=== PATIENT | male | born 1945 | race Caucasian/White ===

== ENCOUNTER → 2017-05-17 | Outpatient (CLI) | payer BC ==
[~2017-05-17] MED LIST: AMIT50TA PO; AREDS EYE VITAMIN; ASCO10002 PO; ASPI-482 PO; DILT180C64 PO; GLUC1TAB71 PO; IOHEXOL 180 MG/ML 10 ML VIAL. ONE; LISI40TA PO; LOVA40TA2 PO; MV-M1TAB34 PO; OMEG1CAP43 PO; OMEP40CA5 PO; TIZA4TAB PO; VITA1CAP PO; VITA400T6 PO; methylPREDNISolone ACETATE 40 MG/ML VIAL. ONE; methylPREDNISolone ACETATE 80 MG/ML VIAL. ONE
--- NOTE | 2017-05-18 01:18 | PAIN ---
DATE OF SERVICE: 05/17/2017 INITIAL CONSULTATION FOR PAIN CLINIC CHIEF COMPLAINT: Low back and left lower extremity pain. HISTORY OF PRESENT ILLNESS: This is a 72-year-old male who presents with history of pain in low back and left lower extremity about 7 years, worse over the past year or so, increasing with activity, worse with time as well. The patient reports no specific injury or action he is aware of that would cause the pain, but the pain is becoming worse with daily activities, especially standing, walking, and changing positions. The patient reports it is constant, sharp, radiating into the left posterior gluteus, posterior lateral thigh, intermittent in intensity, but always present, also some radiation into the left lateral and anterior thigh, which is deep and burning. The patient reports it does not awaken him from sleep at night; however, feels much better lying down or sitting. The patient reports he is able to walk for about 100 yards or so, then he has to stop because the pain is becoming worse into the left leg, stops and rests for about minutes and the pain resolves when he is sitting, gets up in the posture starts again. The patient reports no bowel or bladder incontinence. It does affect his ability to walk fairly significantly. He is not using any assistive devices; however, the patient has done some physical therapy in the past as well as chiropractic treatment and exercise within the last few months, which all helped to some extent. He has had no other treatments, but still only helping by about 20-30%. The patient reports disability rate from 0-10, 10 being the worst, is a 9 with family and home responsibilities, 4 with recreation and self-care, 0 with social activity and life support activities. The patient reports again no loss of motor function with significant fatigability in the left lower extremity with ambulation compared to the right. PAST MEDICAL HISTORY: Significant for hearing loss; cataracts; hypertension; cigarette smoking, quit in 1978; history of arthritis; and tachycardia. PREVIOUS SURGERY: Includes tonsillectomy in 1949, sinus polyps exercised in the past, and right rotator cuff repair in the past. CURRENT MEDICATIONS: Include tizanidine, amitriptyline, fish oil, vitamin D, multivitamins, vitamin E, ascorbic acid, baby aspirin, Osteo Bi-Flex, omeprazole, lisinopril, lovastatin, and diltiazem. ALLERGIES: The patient has no known drug allergies. FAMILY HISTORY: Significant for cancer and heart disease. SOCIAL HISTORY: The patient does not drink alcohol; does not smoke, quit many years ago. He is single, lives on his own and lives locally in [place], [place], currently retired. REVIEW OF SYSTEMS: The patient's review of systems is positive for those items mentioned in history of present illness. It is full, complete. All systems reviewed and otherwise negative and is on the patient's chart. PHYSICAL EXAMINATION: VITAL SIGNS: The patient's blood pressure is 158/94, pulse is 107, respirations 18, temperature 98.1 degrees Fahrenheit, height is 5 feet 9 inches, weight is 201 pounds. GENERAL: The patient is awake, alert, oriented, appropriate, very pleasant demeanor. HEENT: Head shows normocephalic, atraumatic. Extraocular movements are intact and symmetrical. Oral cavity shows mucous membranes moist and pink. Dentition is intact. NECK: Shows anterior throat supple without palpable lymphadenopathy noted. Swallow reflex is symmetrical. Neck shows full rotational motion of cervical spine including extension and flexion. Right and left lateral rotation without difficulty or pain reported. CHEST: Shows normal on inspection. Breath sounds are clear to auscultation bilaterally. HEART: Shows S1 and S2 clear. No murmurs auscultated. ABDOMEN: Obese and soft, nontender, nondistended. No palpable organomegaly. There is no rebound or guarding demonstrated. BACK: The patient's back shows spine grossly in the midline. Normal appearing thoracic kyphosis and lumbar lordotic curvature. No previous bruises, lesions, rashes, or scars are noted. Inspection of paraspinous musculature is symmetrical throughout the thoracic and lumbar distribution. With palpation shows some mild tenderness in the mid thoracic distribution and in the rhomboid musculature as well between the shoulder blades, but only diffusely, no specific trigger points, atrophy or hypertrophy is noted. Lumbar paraspinous musculature is diffusely tender as well, mostly in the low lumbar distribution without specific trigger points or radiation. No asymmetry. No tenderness over the spinous processes, sacrum or sacroiliac regions. The patient shows good rotation and motion of lumbar spine, both laterally greater than 10 degrees right and left as well as extension greater than 10 degrees, forward flexion 45 degrees without difficulty or pain reported. LOWER EXTREMITIES: Show deep tendon reflexes at 2+ in the patellar, 1+ tendo calcaneus tendons are equal. Motor exam is strong with 5/5 dorsiflexion, extension, quadriceps and hamstring flexion and are symmetrical. Peripheral pulses are 1+ posterior tibial and dorsalis pedis pulses. No peripheral edema is noted. No clubbing, no cyanosis. Lower extremities are warm and dry to touch, equal in color and appearance. Straight leg raise noted to be positive on the left at about 45 degrees, which is decreased, but not completely relieved with knee flexion, right side is negative. Gaenslen's and Armaan's maneuvers are negative bilaterally as well. The patient is able to stand, stand on his toes without difficulty or loss of balance, able to heel toe walk for several steps without difficulty, ambulates with normal appearing gait, does not appear to favoring the right or left lower extremity, not using any assistive devices to ambulate. IMPRESSION: 1. This is a 72-year-old male with long history of low back and left lower extremity pain in a radicular fashion. 2. MRI scan of lumbar spine on 02/10/2017, showing moderately severe central spinal stenosis with severe central and bilateral foraminal stenosis at L4-L5 secondary diffuse disk protrusion, probably a broad-based disk herniation. Also with some severe central stenosis at L2-L3 and L3-L4. 3. Hypertension. PLAN: Options were discussed with the patient including conservative medical management, physical therapy, interventional techniques and he would like to pursue interventional techniques. We discussed a lumbar epidural steroid injection using description as well as anatomical models to describe the procedure. Risks were then discussed including, but not limited to bleeding, infection, possibility of epidural hematoma and subsequent neurologic compromise, dural puncture, headaches, spinal cord and/or nerve damage, side effects of steroid medication and poor results regarding pain control. The patient understands and wishes to proceed. The patient will return to clinic in approximately 2 weeks for followup. He was counseled as to return appointment, activity level and side effects to be aware of. DIAGNOSES: Lumbar radiculopathy with lumbar spinal stenosis and lumbar degenerative disease. PROCEDURE: Lumbar epidural steroid injection in translaminar approach at the L4-L5 level using C-arm fluoroscopic guidance under sterile prep and drape using local anesthetic. Medication injected a total of 120 mg Depo-Medrol plus 10 mL of preservative-free normal saline and 2 mL of Isovue contrast. CONDITION AT DISCHARGE: Stable. The patient tolerated procedure well and had no complications. AIMEE MORALES MD DR: JANETT/jose JOB#: [id number] / [id number] RUDI Bales MD
== END | disposition home or self-care (01) ==
LOC: PNCL 12:54
PROVIDERS: ATTEND Anesthesiology
DX: M51.16 Intervertebral disc disorders with radiculopathy, lumbar region (principal); M48.06 Spinal stenosis, lumbar region; H91.90 Unspecified hearing loss, unspecified ear; I10 Essential (primary) hypertension; Z87.891 Personal history of nicotine dependence
CPT/HCPCS: 62323; J1030; J1040

== ENCOUNTER → 2017-06-08 | Outpatient (CLI) | payer BC ==
[~2017-06-08] MED LIST changes: -IOHEXOL 180 MG/ML 10 ML VIAL. ONE; -methylPREDNISolone ACETATE 40 MG/ML VIAL. ONE; -methylPREDNISolone ACETATE 80 MG/ML VIAL. ONE
--- NOTE | 2017-06-08 12:36 | KCIC ---
MRI Cervical Spine Without Contrast History: Right cervical radiculopathy, symptoms started about 3.5 weeks ago Technique: Multiplanar, multi sequential noncontrast MR imaging was performed of the cervical spine. Comparison: February 29, 2016 Findings: There is mild motion artifact. Cervical cord caliber is within normal limits, some questionable subtle increased T2 signal of the cord at C5-C6 at which there is spinal stenosis. There is multilevel abnormal alignment, grade 1 anterior spondylolisthesis at C3-4, C4-5, C7-T1, T1-T2, T2-3. There is moderate to severe degenerative disc disease C5-C6, C6-7, T2-3, and to lesser degree at C7-T1 as seen previously, minimally at C3-4. There is no new abnormality of the cervical medullary junction. There is no significant marrow edema. Cervical vertebral body stature is adequate. There is a small focus of nonspecific fluid signal intensity more centrally just inferior to the posterior central arch of C1 up to 0.6 cm greatest dimension. C2-C3: Spinal canal and neural foramina are adequate. There is a very shallow posterior central protrusion. C3-C4: There is again severe left facet degenerative change. Spinal canal is adequate. There is right uncovertebral degenerative change. There is again focus of decreased signal on all sequences of the right superior C3 vertebral body, no new marrow edema and probably component of Schmorl's node. There is moderate to severe neural foramina compromise bilaterally. C4-C5: There is severe left and [id number] right facet degenerative change. Spinal canal is adequate. There is fairly severe left and moderate to severe right neural foramina compromise. C5-C6: There is again disc osteophyte complex with superimposed broad protrusion/mostly contained extrusion which measures up to approximately 4 mm AP by 8 mm CC by 9 mm transverse. There is indentation upon the ventral thecal sac, somewhat greater in the far lateral recess. Central canal is narrowed to approximately 8 mm, left greater than right lateral recess stenosis. There is uncovertebral degenerative change bilaterally. There is severe neural foramina compromise bilaterally. C6-C7: There is disc osteophyte complex and superimposed protrusion more eccentric to the far lateral recess as seen previously. Central canal is adequate 11 mm, [id number] narrowing of the far left lateral recess, and focal effacement of ventral subarachnoid space in the far left lateral recess. There is uncovertebral degenerative change greater on the left. There is severe left and moderate to severe right neural foramina compromise. C7-T1: There is bilateral facet hypertrophic change. There is partial uncovering of the posterior aspect of the disc due to spondylolisthesis with minimal superimposed bulge. There is mild buckling of the ligamentum flavum. Central canal is minimally narrowed to approximately 9 mm. There is right uncovertebral degenerative change. There is likely moderate to severe neural foramina compromise bilaterally. T1-2: This level was not included on the axial images. There is protrusion eccentric to the left lateral recess. There is buckling of the ligamentum flavum. Central canal is narrowed to 8 to 9 mm, greater degree of left lateral recess stenosis. There is bilateral facet degenerative change. There is fairly severe neural foramina compromise bilaterally. T2-3: This level was not included on the axial images. There is protrusion/extrusion extending above the intervertebral disc space more eccentric to the right lateral recess. Central canal is likely narrowed to approximately 9 mm with a greater degree of right lateral recess stenosis. There is uncovertebral degenerative change on the right. There is likely ilmb-fn-[id number] narrowing of the right neural foramen. Impression: 1. There is mild spinal stenosis C5-C6, C7-T1, T1-T2, and T2-3 with variable greater degree of lateral recess stenosis as described. 2. As seen previously, there is multilevel abnormal alignment, multilevel facet degenerative change. 3. There is multilevel significant neural foramina compromise bilaterally C3-4 through T1-T2. Facet and uncovertebral degenerative change contributes to neural foramina compromise. 4. There is multilevel moderate to severe degenerative disc disease greatest C5-C6, C6-7, and T2-3 and to lesser degree at C7-T1. Electronically signed by: Arias Quiros MD (06/08/2017 12:32 PM) [facility]
== END | disposition home or self-care (01) ==
LOC: KCIC MRI 10:31
PROVIDERS: ATTEND Physical Medicine & Rehabilitation
DX: M48.02 Spinal stenosis, cervical region (principal); M50.122 Cervical disc disorder at C5-C6 level with radiculopathy; M50.123 Cervical disc disorder at C6-C7 level with radiculopathy; M47.22 Other spondylosis with radiculopathy, cervical region; M43.12 Spondylolisthesis, cervical region
CPT/HCPCS: 72141

== ENCOUNTER → 2017-06-09 | Outpatient (CLI) | payer BC ==
--- NOTE | 2017-06-09 23:05 | PAIN ---
DATE OF SERVICE: 06/09/2017 DIAGNOSES: 1. Lumbar radiculopathy with lumbar degenerative disk disease, lumbar spinal stenosis. 2. Thoracic degenerative disk disease. HISTORY OF PRESENT ILLNESS: The patient is a 72-year-old male who returns for followup status post lumbar epidural steroid injection x 1. The patient reports about 95% improvement in his low back and left lower extremity pain is almost completely gone. The patient has increased his activity with greater ease and comfort, very pleased with his progress, reports his pain is only a 1-2 on a scale of 10. His chief complaint today, however, is pain in the mid upper back, more on the right side and it is like a knife pain that is causing some tingling in the right arm as well. The patient reports that it could be as high as a 9 on a scale of 10 and is currently a 6 on a scale of 10. It is tingling, sharp, severe and becoming more constant pain. The patient did have an MRI scan yesterday of the cervical and upper thoracic spine showing some significant stenosis at C5-C6, C6-T1, T1-T2 and T2-T3 with lateral recess stenosis at T2-T3 with a protrusion/extrusion on the right extending above the ____ space in the right lateral recess. The patient reports this is his chief complaint. He has had this on and off for years, but it is becoming more and more noticeable now that his back is feeling better. He is noticing it much more severe in the right side of the upper back. The patient reports no new motor or sensory deficits. No new bowel or bladder incontinence or other complaints. PHYSICAL EXAMINATION: VITAL SIGNS: Today, blood pressure is 151/95, pulse 99, respirations are 20, temperature is 97.9 degrees Fahrenheit, and weight is 197 pounds. GENERAL: The patient is awake, alert, oriented, appropriate, very pleasant demeanor. HEENT: Head shows normocephalic, atraumatic. Extraocular movements are intact and symmetrical. Oral cavity shows mucous membranes moist and pink. Dentition is intact. NECK: Shows anterior throat supple without palpable lymphadenopathy noted. Swallow reflex is symmetrical. CHEST: Shows normal on inspection. Breath sounds clear to auscultation bilaterally. HEART: Shows S1 and S2 clear. ABDOMEN: Soft, nontender, nondistended. BACK: Shows spine grossly midline. Lumbar paraspinous muscle shows symmetrical with palpation, but without significant radiation. Only very mild tenderness in the low lumbar distribution on the left side. Upper back shows significant tenderness with palpation in the right upper thoracic paraspinous musculature and rhomboid musculature compared to the left, but is symmetrical on inspection without specific trigger points or radiation, but it is fairly tender with palpation in this region. EXTREMITIES: Upper extremities showed deep tendon reflexes 2+ in the biceps and triceps tendons. Lower extremities show deep tendon reflexes at 2+ in the patellar tendons. Motor exam is strong with 5/5 in the lower extremities. Upper extremities are about 3 on a scale of 5 with right computer system validation specialist strength and 5/5 on the left. Options were discussed with the patient. The patient's old chart was reviewed as was his current medication regimen and updated. Current review of systems is updated today as well and we will plan on referral for thoracic epidural steroid injection at T2-T3 level at the site of a disk protrusion on the right side, which would be causing this radicular type pain into the right shoulder and upper paraspinous region. The patient will obtain referral from his primary care physician per his insurer's requirements and return for thoracic epidural steroid injection at that time. AIMEE MORALES MD DR: JANETT/jose JOB#: [id number] / [id number]
== END | disposition home or self-care (01) ==
LOC: PNCL 10:04
PROVIDERS: ATTEND Anesthesiology
DX: M54.16 Radiculopathy, lumbar region (principal); M51.36 Other intervertebral disc degeneration, lumbar region; M48.06 Spinal stenosis, lumbar region; M51.34 Other intervertebral disc degeneration, thoracic region
CPT/HCPCS: 99212

== ENCOUNTER → 2017-06-12 | Outpatient (CLI) | payer BC ==
[~2017-06-12] MED LIST changes: +IOHEXOL 180 MG/ML 10 ML VIAL. ONE; +methylPREDNISolone ACETATE 40 MG/ML VIAL. ONE; +methylPREDNISolone ACETATE 80 MG/ML VIAL. ONE
--- NOTE | 2017-06-12 14:02 | PAIN ---
DATE OF SERVICE: 06/12/2017 DIAGNOSES: 1. Lumbar radiculopathy with lumbar degenerative disk disease, lumbar spinal stenosis. 2. Cervical radiculopathy with cervical degenerative disk disease and thoracic degenerative disk disease and thoracic herniated disk. HISTORY OF PRESENT ILLNESS: The patient is a 72-year-old male who returns for followup status post initial evaluation and previous lumbar epidural steroid injection. We had waited for preauthorization. He had about 95% improvement with the lumbar injection and returned today for cervical, thoracic injection after significant pain in the base of neck, radiation to the right shoulder and arm, into the middle upper arm and medial forearm. The patient reports also some pain in the upper shoulder into the right scapular region as well. The patient reports no new motor or sensory deficits, no new changes. Again, was seen 3 days ago and preauthorization was obtained. Now, we would like to proceed with a cervical epidural steroid injection. The patient reports he is sleeping well at night, does not bother him when he is sitting back relaxing and lying down, only with up and around and movement of the head and shoulders on the right side mainly. The patient's old chart was reviewed as his current medication regimen updated. Current review of systems updated today as well. PHYSICAL EXAMINATION: VITAL SIGNS: The patient's blood pressure 121/79, pulse 101, respirations 18, temperature 98.1 degrees Fahrenheit, height is 5 feet 9 inches, weighs 197 pounds. GENERAL: The patient is awake, alert, oriented, appropriate, very pleasant demeanor. HEENT: Head shows normocephalic, atraumatic. Extraocular movements are intact and symmetrical. Oral cavity, mucous membranes are moist and pink. Dentition is intact. NECK: Shows anterior throat supple without palpable lymphadenopathy noted. Swallow reflex is symmetrical. CHEST: Shows normal on inspection. Breath sounds are clear bilaterally. HEART: Shows S1 and S2 clear. ABDOMEN: Soft, nontender, nondistended. Neck shows posterior cervical musculature with some mild tenderness, but only in the inferior aspect, more on the right than the left with the palpation shows good rotational motion; however, good extension and flexion. EXTREMITIES: Upper extremities showed deep tendon reflexes 2+ in the biceps and triceps tendons. Motor exam is approximately 3 on 2-4 scale, 5/5 right web application tester strength and 5/5 on the left. Options were discussed with the patient and the patient's old chart was reviewed as his current medication regimen updated. Current review of systems updated today as well and we will proceed with a cervical epidural steroid injection today with a C-arm fluoroscopic guidance under sterile prep and drape and using local anesthetic. Risks were discussed including but not limited to bleeding, infection, possibility of epidural hematoma, subsequent neurologic compromise, dural puncture, headaches, spinal cord and/or nerve damage, side effects of steroid medication and poor results regarding pain control. The patient understands and wishes to proceed. The patient will return to clinic in approximately 2 weeks for followup. He was counseled on return and side effects to be aware of. DIAGNOSES: Cervical radiculopathy with thoracic radiculopathy and cervical and thoracic degenerative disk disease. PROCEDURE: Cervical epidural steroid injection. Using C-arm fluoroscopic guidance, under sterile prep and drape using local anesthetic at the C7-T1 level in translaminar approach. MEDICATION INJECTED: Depo-Medrol 120 mg plus 5 mL of preservative-free normal saline and 2 mL of Isovue for contrast. CONDITION AT DISCHARGE: Stable. The patient tolerated procedure well, had no complications. AIMEE MORALES MD DR: JANETT/jose JOB#: [id number] / [id number]
== END | disposition home or self-care (01) ==
LOC: PNCL 09:57
PROVIDERS: ATTEND Anesthesiology
DX: M50.120 Mid-cervical disc disorder, unspecified level (principal); M51.14 Intervertebral disc disorders with radiculopathy, thoracic region
CPT/HCPCS: 62321; J1030; J1040

== ENCOUNTER → 2017-08-14 | Outpatient (CLI) | payer BC ==
[~2017-08-14] MED LIST changes: -IOHEXOL 180 MG/ML 10 ML VIAL. ONE; -methylPREDNISolone ACETATE 40 MG/ML VIAL. ONE; -methylPREDNISolone ACETATE 80 MG/ML VIAL. ONE
--- NOTE | 2017-08-16 15:48 | RESP ---
DATE OF SERVICE: 08/14/2017 PULMONARY FUNCTION TEST ATTENDING PHYSICIAN: Dr. Forrest. The patient's FVC was 3.25, which is 81% predicted. FEV1 2.73, which is ____ predicted. The FEV1/FVC ratio was normal. No bronchodilators were given. Total lung capacity was normal at 97% predicted. Residual volume 124% predicted. Diffusion capacity 90% predicted. IMPRESSION: 1. No significant obstructive airway disease. 2. Lung volumes consistent with air trapping. 3. Normal diffusion capacity. AIDAN LY MD DR: ALYX/jose JOB#: [id number] / [id number]
== END | disposition home or self-care (01) ==
LOC: PF 09:48
PROVIDERS: ATTEND Internal Medicine Cardiovascular Disease
DX: R06.00 Dyspnea, unspecified (principal)
CPT/HCPCS: 94010; 94729

== ENCOUNTER → 2017-11-27 | Outpatient (CLI) | payer BC ==
[~2017-11-27] MED LIST changes: -AMIT50TA PO; -AREDS EYE VITAMIN; -ASCO10002 PO; -ASPI-482 PO; -DILT180C64 PO; -GLUC1TAB71 PO; +IOHEXOL 180 MG/ML 10 ML VIAL.; -LISI40TA PO; -LOVA40TA2 PO; -MV-M1TAB34 PO; -OMEG1CAP43 PO; -OMEP40CA5 PO; -TIZA4TAB PO; -VITA1CAP PO; -VITA400T6 PO; +methylPREDNISolone ACETATE 40 MG/ML VIAL.; +methylPREDNISolone ACETATE 80 MG/ML VIAL.
== END | disposition home or self-care (01) ==
LOC: PNCL 10:21
DX: M51.16 Intervertebral disc disorders with radiculopathy, lumbar region (principal); M48.061 Spinal stenosis, lumbar region without neurogenic claudication; M50.30 Other cervical disc degeneration, unspecified cervical region
CPT/HCPCS: 62323; J1030; J1040; Q9965

== ENCOUNTER → 2018-01-23 | Outpatient (CLI) | payer BC | END | disposition home or self-care (01) | LOC: PNCL 10:14 | DX: M51.16 Intervertebral disc disorders with radiculopathy, lumbar region (principal); M51.24 Other intervertebral disc displacement, thoracic region; M48.061 Spinal stenosis, lumbar region without neurogenic claudication; M50.10 Cervical disc disorder with radiculopathy, unspecified cervical region | CPT/HCPCS: 99212 ==

== ENCOUNTER → 2018-02-06 | Outpatient (CLI) | payer BC | END | disposition home or self-care (01) | LOC: CT 10:46 | DX: J18.1 Lobar pneumonia, unspecified organism (principal); I25.10 Atherosclerotic heart disease of native coronary artery without angina pectoris; I77.810 Thoracic aortic ectasia; M47.894 Other spondylosis, thoracic region; M41.84 Other forms of scoliosis, thoracic region; R91.1 Solitary pulmonary nodule | CPT/HCPCS: 71250 ==

== ENCOUNTER 2018-03-14 06:51 | Outpatient (CLI) | payer BC ==
[2018-03-14 07:31] LABS: ADD MAN DIFF? NO
[2018-03-14 07:38] LABS: BASO % 1 % (0-3); EOS # 0.4 x10^3/uL (0.0-0.7); EOS % 4 % (0-3); HEMATOCRIT 39.6 % (39.0-53.0); HEMOGLOBIN 13.7 g/dL (13.0-17.5); LYMPH # 1.8 x10^3/uL (1.0-4.8); LYMPH % 21 % (24-48); MEAN CORPUSCULAR HEMOGLOBIN 33 pg (25-35); MEAN CORPUSCULAR HGB CONC 35 g/dL (31-37); MEAN CORPUSCULAR VOLUME 95 fL (79-100); MONO # 1.1 x10^3/uL (0.0-1.1); MONO % 12 % (0-9); NEUT # 5.5 x10^3uL (1.8-7.7); NEUT % 63 % (31-73); PLATELET COUNT 263 x10^3/uL (140-400); RED BLOOD COUNT 4.19 x10^6/uL (4.30-5.70); RED CELL DISTRIBUTION WIDTH 14.4 % (11.5-14.5); WHITE BLOOD COUNT 8.8 x10^3/uL (4.0-11.0)
[2018-03-14 07:47] LABS: INR 0.9 (0.8-1.1)
[2018-03-14] MEDS ORDERED: LIDOCAINE WITH 8.4% SOD BICARB 3 ML DISP.SYRIN. (08:17)
[2018-03-14] MEDS ORDERED: MIDAZOLAM HCL/PF 2 MG/2 ML VIAL. (08:49)
[2018-03-14] MEDS ORDERED: fentaNYL PF VIAL 100 MCG/2 ML VIAL (08:49)
[2018-03-14] MEDS: fentaNYL PF VIAL 100 MCG/2 ML VIAL IV (09:33)
[2018-03-14] MEDS: LIDOCAINE WITH 8.4% SOD BICARB 3 ML DISP.SYRIN. IJ (09:33)
[2018-03-14] MEDS: MIDAZOLAM HCL/PF 2 MG/2 ML VIAL. IV (09:33)
== END 2018-03-14 12:50 | disposition home or self-care (01) ==
LOC: INTRAD 06:51
DX: R91.1 Solitary pulmonary nodule (principal); E78.00 Pure hypercholesterolemia, unspecified; K21.9 Gastro-esophageal reflux disease without esophagitis; I10 Essential (primary) hypertension; Z87.11 Personal history of peptic ulcer disease; Z98.890 Other specified postprocedural states; Z79.899 Other long term (current) drug therapy
CPT/HCPCS: 32405; 36415; 71046; 77012; 85025; 85610; 88305; 88341; 88342; 99152; 99153; J2250; J3010

== ENCOUNTER → 2018-03-20 | Outpatient (CLI) | payer BC | END | disposition home or self-care (01) | LOC: ECHO 12:25 | DX: I25.10 Atherosclerotic heart disease of native coronary artery without angina pectoris (principal) | CPT/HCPCS: 93306 ==

== ENCOUNTER → 2018-05-11 | Outpatient (CLI) | payer BC ==
[~2018-05-11] MED LIST changes: +LIDOCAINE 1% PF 2 ML VIAL.
== END | disposition home or self-care (01) ==
LOC: PNCL 11:17
DX: M51.16 Intervertebral disc disorders with radiculopathy, lumbar region (principal); M48.061 Spinal stenosis, lumbar region without neurogenic claudication; M50.10 Cervical disc disorder with radiculopathy, unspecified cervical region; I10 Essential (primary) hypertension; E78.00 Pure hypercholesterolemia, unspecified; I25.10 Atherosclerotic heart disease of native coronary artery without angina pectoris; K21.9 Gastro-esophageal reflux disease without esophagitis; Z87.01 Personal history of pneumonia (recurrent); Z98.890 Other specified postprocedural states; Z79.82 Long term (current) use of aspirin; Z79.899 Other long term (current) drug therapy
CPT/HCPCS: 62323; J1030; J1040; Q9965

== ENCOUNTER → 2018-06-11 | Outpatient (CLI) | payer BC ==
[2018-03-14 11:30] VITALS: BP 116/77
[~2018-06-11] MED LIST changes: +ACET325T9 PO; +AMIT25TA PO; +AMIT50TA PO; +AREDS EYE VITAMIN; +ASCO10002 PO; +ASPI-482 PO; +CALC600T4 PO; +CHOL500016 PO; +CHOL500045 PO; +DILT180C64 PO; +GLUC1TAB71 PO; +HYDR25SU18 RC; -IOHEXOL 180 MG/ML 10 ML VIAL.; -LIDOCAINE 1% PF 2 ML VIAL.; +LISI-130 PO; +LOVA40TA2 PO; +MELO15TA23 PO; +MV-M1TAB34 PO; +OMEG1CAP43 PO; +OMEP40CA5 PO; +TIZA4TAB PO; +VITA1CAP PO; +VITA400T6 PO; -methylPREDNISolone ACETATE 40 MG/ML VIAL.; -methylPREDNISolone ACETATE 80 MG/ML VIAL.
--- NOTE | 2018-06-11 10:49 | RAD ---
Examination: CT chest without contrast HISTORY: History of lung nodule follow-up COMPARISON: 11/06/2017 TECHNIQUE: Axial CT images of chest were performed without contrast. Coronal and sagittal reformats are performed Exposure: One or more of the following individualized dose reduction techniques were utilized for this examination: 1. Automated exposure control 2. Adjustment of the mA and/or kV according to patient size 3. Use of iterative reconstruction technique FINDINGS: The central airways are patent. Small prominent right paraesophageal lymph nodes identified with the largest measuring 1.6 cm. Mild cardiomegaly. The caliber of the aorta grossly appears unremarkable Moderate aortic atherosclerosis. There is a 1 cm nodule identified in the right lower lobe of the lung best visualized on series 2 image #30 grossly similar to prior exam. There is a new nodule identified in the right lower lobe of the lung measuring 7.5 mm best seen on series 2 image #37. Focus of consolidation identified in the medial right lower lobe of the lung likely atelectasis or infiltrate There is a small round nodule measuring 5.5 mm identified in the left lower lobe of the lung bases visualized on series 2 image #32. Faint groundglass airspace opacities identified in the bilateral lungs. No evidence of pleural effusion or pneumothorax. The visualized noncontrasted liver, spleen, adrenals grossly appears unremarkable. The gallbladder is mildly distended. The stomach is mildly distended. The visualized pancreas grossly appears unremarkable. Moderate degenerative changes thoracic spine IMPRESSION: 1. Unchanged 1 cm nodule identified in the right lower lobe of the lung. There are new nodules identified in the right lower lobe of the lung measuring 7.5 mm and in the left lower lobe of the lung measuring 5.5 mm. Close interval follow-up examination is recommended in 3-6 months. 2. Focus of airspace opacity identified in the medial right lower lobe lung likely atelectasis or infiltrate. Follow-up to resolution. Electronically signed by: Nathan Bentley MD (06/11/2018 10:45 AM) [id number]
== END | disposition home or self-care (01) ==
LOC: CT 09:34
PROVIDERS: ATTEND Internal Medicine Critical Care Medicine
DX: R91.1 Solitary pulmonary nodule (principal); R91.8 Other nonspecific abnormal finding of lung field; K82.8 Other specified diseases of gallbladder; K31.89 Other diseases of stomach and duodenum; I70.0 Atherosclerosis of aorta; I10 Essential (primary) hypertension; E78.00 Pure hypercholesterolemia, unspecified; I25.10 Atherosclerotic heart disease of native coronary artery without angina pectoris; K21.9 Gastro-esophageal reflux disease without esophagitis; Z87.891 Personal history of nicotine dependence; Z87.11 Personal history of peptic ulcer disease
CPT/HCPCS: 71250

== ENCOUNTER → 2018-07-19 | Outpatient (CLI) | payer BC ==
[2018-03-14 11:30] VITALS: BP 116/77
--- NOTE | 2018-07-19 11:17 | RAD ---
FDG tumor localization scan, PET/CT, 07/19/2018: History: Lung nodule Following IV injection of 14.1 mCi of 18 F-FDG, imaging was performed from the skull base to the proximal thighs. The noncontrast CT component was performed for attenuation correction and anatomic localization purposes rather than for primary diagnosis. The patient's blood glucose level at the time of injection was 83 MG/DL. The images are of suboptimal quality due to generalized heterogeneous artifacts. No abnormal FDG uptake is seen in the neck. There is an 8 mm nodule in the posterior aspect of the left lower lobe as also noted on the CT study of 06/11/2018. It demonstrates low level FDG uptake with a maximum SUV of 2.6. This is similar to the mediastinal background uptake. There is a small elongated parenchymal opacity again identified in the lateral aspect of the right lower lobe, measuring approximately 13 x 4 mm on these axial scans. No abnormal FDG uptake is seen at this level. A small nodular opacity seen in the posterior right lung base on 06/11/2018 CT scan is now only faintly visible as a nonsolid opacity. No abnormal FDG uptake is identified at this level. There is adjacent mild infiltrate posteromedially in the right base which is unchanged since the 06/11/2018 CT study. There is mildly increased FDG uptake in this region with a maximum SUV of 3.2. The lung activity is otherwise unremarkable. No hypermetabolic mediastinal or hilar adenopathy is seen. There are scattered calcified plaques in the aorta and coronary arteries. Physiologic FDG uptake is seen in the GI tract and urinary tract. No hypermetabolic abdominal or pelvic mass is seen. IMPRESSION: 1. Mild FDG uptake in the known left lower lobe pulmonary nodule which could be on an inflammatory or neoplastic basis. Follow-up imaging is suggested. 2. The right lateral lower lobe pulmonary nodule does not demonstrate abnormal FDG uptake, however, that could be due to its small size. 3. The small posterior right lower lobe pulmonary nodule is less clearly visualized on the CT images and may be resolving. There is nearby unchanged mildly hypermetabolic infiltrate posteromedially in the right base, likely on an inflammatory basis.
== END | disposition home or self-care (01) ==
LOC: PETSC 12:07
PROVIDERS: ATTEND Internal Medicine Critical Care Medicine
DX: R91.1 Solitary pulmonary nodule (principal)
CPT/HCPCS: 78815; A9552

== ENCOUNTER → 2019-01-18 | Outpatient (CLI) | payer BC ==
[2018-03-14 11:30] VITALS: BP 116/77
--- NOTE | 2019-01-18 16:30 | RAD ---
CT of the chest without contrast, 01/18/2019: HISTORY: Lung nodules. Noncontrast scans were obtained and compared to a study from 06/11/2018. Evaluation of lung parenchyma is partially compromised by patient respiratory motion artifact. There is a 15 x 5 mm elongated opacity in the lateral aspect of the right lower lobe as seen on image 180 of series #3. It appears unchanged since the previous study. There is an 10 x 8 mm peripheral nodule in the posterior aspect of the right lower lobe as seen on image 202 of series #3. It measured 10 x 6 mm on the previous study. It now contains a tiny area of cavitation. There are calcified granulomas in the right upper and middle lobes on the left lower lobe. There are scattered linear and groundglass opacities primarily in the periphery of both lungs probably representing atelectasis and/or scarring. There is a cluster of tree-in-bud type opacities in the inferior lingula on the left as seen on images 105 through 112 of series #3. The configuration suggests that this is an inflammatory process. Several additional small branching nodular opacities are seen more medially in the left upper lobe on images 105 and 106 of series #3. There is mild chronic peripheral infiltrate or scarring medially in the right lower lobe adjacent to a large thoracic osteophyte. Aortic calcific plaquing is present without evidence of aneurysm. Multiple coronary artery calcifications are noted. No mediastinal adenopathy is seen. Moderate scattered degenerative changes are present in the spine. IMPRESSION: Numerous bilateral parenchymal opacities as described above, much of which is probably due to scarring and/or chronic inflammation.. A small cavitary nodule in the posterior aspect of the right lower lobe has increased slightly in size. A dominant right basilar nodule is unchanged. Several lingular opacities are new, possibly inflammatory. Further CT follow-up is suggested. PQRS Compliance Statement: One or more of the following individualized dose reduction techniques were utilized for this examination: 1. Automated exposure control 2. Adjustment of the mA and/or kV according to patient size 3. Use of iterative reconstruction technique Electronically signed by: Clem Everett MD (01/18/2019 4:27 PM) [facility]
== END | disposition home or self-care (01) ==
LOC: CT 11:09
PROVIDERS: ATTEND Internal Medicine Critical Care Medicine
DX: J84.10 Pulmonary fibrosis, unspecified (principal); R91.8 Other nonspecific abnormal finding of lung field; I25.10 Atherosclerotic heart disease of native coronary artery without angina pectoris; I10 Essential (primary) hypertension; Z87.891 Personal history of nicotine dependence
CPT/HCPCS: 71250

== ENCOUNTER → 2019-08-09 | Outpatient (CLI) | payer BC ==
[2018-03-14 11:30] VITALS: BP 116/77
[~2019-08-09] MED LIST changes: +OMEP40CA45 PO; -OMEP40CA5 PO; -TIZA4TAB PO; +TIZA4TAB2 PO
--- NOTE | 2019-08-09 17:09 | KCIC ---
LUMBAR SPINE WO CONTRAST Date: 08/09/2019 2:45 PM Indication: Chronic low back pain, bilateral lower extremity radiculopathy Comparison: None. Technique: Multi-planar multi-weighted magnetic resonance imaging of the lumbar spine was performed without intravenous contrast using the standard lumbar spine protocol. FINDINGS: S-shaped thoracolumbar curvature. 3 mm retrolisthesis at L2-3. 5 mm anterolisthesis at L4-5. No acute fracture. Moderate multilevel degenerative disc desiccation and disc height loss. Multilevel fatty degenerative endplate changes. The conus terminates at a normal level. No abnormal signal is seen within the visualized distal spinal cord. Displacement of the nerve roots of the cauda equina into the anterior aspect of the thecal sac from L5-S2. No soft tissue abnormality in the visualized abdomen or pelvis. T12-L1: No disc bulge. No facet arthropathy. No significant spinal stenosis or neural foraminal narrowing. L1-L2: Disc bulge with right far lateral extrusion. Mild facet arthropathy. Mild spinal stenosis. Mild right lateral recess and neural foraminal narrowing. L2-L3: Disc bulge with left foraminal and bilateral far lateral protrusions. Mild to moderate facet arthropathy. Ligament flavum thickening. Moderate spinal stenosis. Moderate right and severe left lateral recess narrowing. Moderate bilateral neural foraminal narrowing. L3-L4: Disc bulge with left far lateral protrusion. Moderate to severe facet arthropathy. Ligamentum flavum thickening. Moderate to severe spinal stenosis and lateral recess narrowing. Moderate to severe bilateral neural foraminal narrowing. L4-L5: Disc bulge with left greater than right lateral protrusions. Severe facet arthropathy. Ligamentum flavum thickening. Severe spinal stenosis and lateral recess narrowing. Moderate right and severe left neural foraminal narrowing. L5-S1: Disc bulge with bilateral far lateral protrusions. Mild facet arthropathy. No spinal stenosis. Mild left and moderate right neural foraminal narrowing. IMPRESSION: 1. Scoliosis and advanced lumbar spondylosis with multilevel severe and moderate to severe spinal canal stenosis and neural foraminal narrowing, detailed level by level above. 2. There is displacement of the nerve roots of the cauda equina into the anterior aspect of the thecal sac at L5-S2. This could be due to the presence of a Tarlov cyst, or potentially arachnoiditis in the appropriate clinical setting. Electronically signed by: Arias Mon MD (08/09/2019 5:06 PM) [facility]
== END ==
LOC: KCIC MRI 14:23
PROVIDERS: ATTEND Anesthesiology
DX: M51.16 Intervertebral disc disorders with radiculopathy, lumbar region (principal); M47.816 Spondylosis without myelopathy or radiculopathy, lumbar region; M41.86 Other forms of scoliosis, lumbar region
CPT/HCPCS: 72148

== ENCOUNTER → 2019-08-13 | Outpatient (CLI) | payer BC ==
[2018-03-14 11:30] VITALS: BP 116/77
[~2019-08-13] MED LIST changes: +AREDS EYE VITAMIN PO; +BUPIVACAINE MPF 0.25% 10 ML VIAL. ONE; +IOHEXOL 180 MG/ML 10 ML VIAL. ONE; +methylPREDNISolone ACETATE 80 MG/ML VIAL. ONE
--- NOTE | 2019-08-13 14:46 | PAIN ---
DATE OF SERVICE: 08/13/2019 PROGRESS NOTE FOR PAIN CLINIC DIAGNOSES: Lumbar radiculopathy with lumbar degenerative disk disease and lumbar spinal stenosis. HISTORY OF PRESENT ILLNESS: The patient is a 74-year-old male who returns for followup status post lumbar epidural steroid injection x 2. The patient reports that most recently 05/11/2018, the patient reports that a year and few months ago, the pain was not significantly improved with the injection he received and significant pain in the low back radiating to the left lower extremity, posterior gluteus, posterolateral thigh, lateral anterior thigh, medial thigh, medial lower leg. The patient reports tingling, aching, dull becoming more constant, worse with activity. He did have MRI scan dated 08/09/2019 showing progression of L4-L5 disk bulge with left greater than right lateral protrusion with severe facet arthropathy, severe spinal stenosis and lateral recess narrowing, moderate right and severe left neural foraminal narrowing. Also, L3-L4 shows moderate to severe spinal stenosis and lateral recess narrowing, moderate to severe bilateral neural foraminal narrowing. The patient reports pain in the left side primarily the hip and into the lateral thigh, anterior medial thigh. He rates it 8 on a scale of 10 at its worst, 8 on average and a 4 at its least and is an 8 today. The patient reports it is aching, dull, tingling, becoming more constant, worse with activity, standing, walking, changing positions. The patient reports no new motor or sensory deficits, no new bowel or bladder incontinence, awakens him from sleep, but only about every 6-7 hours. The patient reports no other changes. PHYSICAL EXAMINATION: VITAL SIGNS: The patient's blood pressure 140/81, pulse 98, respirations 16, temperature 98.8 degrees Fahrenheit, weight is 193 pounds. GENERAL: The patient is awake, alert, oriented, appropriate, very pleasant demeanor. HEENT: Head shows normocephalic, atraumatic. Extraocular movements are intact and symmetrical. Oral cavity: Mucous membranes moist and pink. Dentition is intact. NECK: Shows anterior throat supple without palpable lymphadenopathy noted. Swallow reflex symmetrical. CHEST: Shows normal on inspection. Breath sounds clear to auscultation bilaterally. HEART: Shows S1, S2 clear. No murmurs auscultated. ABDOMEN: Soft, nontender, nondistended. No palpable organomegaly is noted. No rebound or guarding demonstrated. BACK: Shows spine grossly in the midline. Normal appearing thoracic kyphosis and minor flattening of lumbar lordotic curvature. Lumbar paraspinous muscle shows symmetrical on inspection, on palpation shows some moderate tenderness diffusely throughout the middle and lower distribution of paraspinous muscles. The patient has good rotational motion of lumbar spine, both laterally as well as extension and flexion without significant increase in pain. EXTREMITIES: Lower extremities show deep tendon reflexes 2+ in the patellar, 1+ tendo-calcaneus tendons. Motor exam is 5/5 with dorsiflexion, extension, quadriceps and hamstring flexion and symmetrical. Peripheral pulses are 1+ posterior tibia. No peripheral edema is noted. Options were discussed with the patient. The patient's old chart was reviewed as his current medication regimen updated. Current review of systems updated today as well and we will proceed with a left L4-L5 transforaminal epidural injection with fluoroscopic guidance. Risks were discussed including, but not limited to bleeding, infection, possibility of epidural hematoma, subsequent neurologic compromise, dural puncture, headaches, spinal cord and/or nerve damage, side effects of steroid medication, potential injection of the vertebral artery at that level and permanent ischemic damage as well as poor results regarding pain control. The patient understands and wished to proceed. The patient will return to clinic in approximately 2 weeks for followup, was counseled as to report on return appointment, activity level and side effects to be aware of. DIAGNOSES: Lumbar radiculopathy with lumbar degenerative disk disease, lumbar spinal stenosis. PROCEDURE: Left-sided L4-L5 transforaminal injection using C-arm fluoroscopic guidance under sterile prep and drape using local anesthetic. MEDICATION INJECTED: An 80 mg Depo-Medrol plus 2 mL of 0.25% bupivacaine, 1.5 mL of contrast with good tracking of contrast medially into the epidural space as well as laterally along the nerve root at the L4-L5 level with no uptake on digital subtraction and no washout. CONDITION AT DISCHARGE: Stable. The patient tolerated the procedure well, had no complications. AIMEE MORALES MD DR: JANETT/jose JOB#: [id number] / [id number]
== END ==
LOC: PNCL 11:00
PROVIDERS: ATTEND Anesthesiology
DX: M51.16 Intervertebral disc disorders with radiculopathy, lumbar region (principal); M48.061 Spinal stenosis, lumbar region without neurogenic claudication
CPT/HCPCS: 64483; J1040; J3490; Q9965

== ENCOUNTER → 2019-08-21 | Outpatient (CLI) | payer BC ==
[2018-03-14 11:30] VITALS: BP 116/77
[~2019-08-21] MED LIST changes: -BUPIVACAINE MPF 0.25% 10 ML VIAL. ONE; -IOHEXOL 180 MG/ML 10 ML VIAL. ONE; -methylPREDNISolone ACETATE 80 MG/ML VIAL. ONE
--- NOTE | 2019-08-22 04:02 | KCIC ---
CT chest without contrast. HISTORY: Lung nodule, follow-up. CT CHEST: CT scan the chest was done without contrast. Comparison is made with a study from January 18. There is a density along the left diaphragm on images 34 and 35 without change compared to the prior study in the left lower lobe. Patient has not taken a deep inspiration. The nodule noted along the heart border on the left on the prior study is no longer identified. There are 2 peripheral nodules in the lingula on image #25 with little change from the prior study. There is peribronchial thickening. There is a granuloma in the right upper lobe. There is a somewhat elongated nodule in the lateral right lower lobe on image 30 without change from the prior study. There is a nodule on image #32 in the right lower lobe without change. There is a bullous focus or cavitary focus along the spine in the medial right lung base adjacent to a prominent bony spur. There is a tiny density just above the diaphragm on image 40 to the right lower lobe without change. The nodular infiltrate in the posterior right lung appears to have resolved since the prior study with minimal residual density. Thoracic aorta is mildly ectatic without an aneurysm or dissection. Adrenal glands are normal. IMPRESSION: 1. Multiple pulmonary nodules. 2. At least 2 other densities have improved since the prior study likely related to previous infiltrates or inflammatory disease. Further follow-up in 6 months to one year would be recommended. Electronically signed by: Galileo Muñoz MD (08/22/2019 3:59 AM) [facility]
== END | disposition home or self-care (01) ==
LOC: KCIC CT 14:03
PROVIDERS: ATTEND Internal Medicine Critical Care Medicine
DX: R91.8 Other nonspecific abnormal finding of lung field (principal); J84.10 Pulmonary fibrosis, unspecified; Z79.01 Long term (current) use of anticoagulants
CPT/HCPCS: 71250

== ENCOUNTER → 2019-09-02 | Outpatient (CLI) | payer BC ==
[2018-03-14 11:30] VITALS: BP 116/77
[~2019-09-02] MED LIST changes: +BUPIVACAINE MPF 0.25% 10 ML VIAL. ONE; +IOHEXOL 180 MG/ML 10 ML VIAL. ONE; +methylPREDNISolone ACETATE 80 MG/ML VIAL. ONE
--- NOTE | 2019-09-02 13:13 | PAIN ---
DATE OF SERVICE: 09/02/2019 PROGRESS NOTE FOR PAIN CLINIC DIAGNOSES: Lumbar radiculopathy with lumbar degenerative disk disease, lumbar spinal stenosis. HISTORY OF PRESENT ILLNESS: The patient is a 74-year-old male who returns for followup status post left lumbar transforaminal injection x 1. The patient reports about 50 improvement in his left leg and low back. The patient reports he is still doing well, but the pain is still there, but much improved. The patient has been increasing his activity, walking, doing greater activities at home, traveling with greater activity with greater comfort as well. The patient reports that he is sleeping much better at night about 8 hours a night, does not awake him from sleep. The patient rates his pain as a 5 on a scale of 10 at its worst over the past week, average is a 3, least is a 3 and 3 today as well. The patient reports aching and tingling in the low back, posterior gluteus, posterior thigh, can go into his left lateral thigh and anterior medial and lower leg as well, but again rarely the patient reports he is doing much better, very pleased with his progress thus far, no new motor or sensory deficits, no new bowel or bladder incontinence or other complaints. PHYSICAL EXAMINATION: VITAL SIGNS: The patient's blood pressure is 148/75, pulse 101, respirations 18, temperature 97.6 degrees Fahrenheit, height is 5 feet 9 inches, weight is 191 pounds. GENERAL: The patient is awake, alert, oriented, appropriate, very pleasant demeanor. HEENT: Shows normocephalic, atraumatic. Extraocular movements are intact and symmetrical. Oral cavity: Mucous membranes moist and pink. Dentition is intact. NECK: Shows anterior throat supple without palpable lymphadenopathy noted. Swallow reflex symmetrical. CHEST: Shows normal on inspection. Breath sounds clear to auscultation bilaterally. HEART: Shows S1, S2 clear. No murmurs auscultated. ABDOMEN: Soft, nontender, nondistended. No palpable organomegaly is noted. No rebound or guarding demonstrated. BACK: Shows spine grossly in the midline, normal appearing thoracic kyphosis and lumbar lordotic curvature. Lumbar paraspinous muscle shows symmetrical on inspection, with palpation shows some moderate tenderness diffusely without significant radiation. The patient's lower extremity shows deep tendon reflexes 2+ in the patellar and tendo-calcaneus tendons. Motor exam is strong with 5/5 dorsiflexion, extension, quadriceps and hamstring flexion symmetrical. Peripheral pulses are 1+ posterior tibia. No peripheral edema is noted bilaterally. Options were discussed with the patient. The patient's old chart was reviewed as his current medication regimen updated. Current review of systems updated today as well. We will proceed with a second in this series left L4-L5 transforaminal injection using C-arm fluoroscopic guidance. Risks were again discussed including, but not limited to bleeding, infection, possibility of epidural hematoma, subsequent neurological compromise, dural puncture, headaches, spinal cord and/or nerve damage, side effects of steroid medication, potential vertebral injection into the vertebral artery at that level with permanent ischemic damage as well as poor results regarding pain control. The patient understands and wished to proceed. The patient will return to clinic in approximately 2 weeks for followup. He was counseled on return appointment, activity level and side effects to be aware of. DIAGNOSES: Lumbar radiculopathy with lumbar degenerative disk disease and lumbar spinal stenosis. PROCEDURE: Lumbar epidural steroid injection, transforaminal approach at the L4-L5 level on the left using C-arm fluoroscopic guidance under sterile prep and drape. MEDICATION INJECTED: A total of 80 mg Depo-Medrol plus total of 2 mL of 0.25% bupivacaine and 1.5 mL of contrast with good spread medially into the epidural space as well as laterally along the nerve root. No washout was noted with digital subtraction. CONDITION AT DISCHARGE: Stable. The patient tolerated procedure well, had no complications. AIMEE MORALES MD DR: JANETT/jose JOB#: [id number] / [id number]
== END ==
LOC: PNCL 10:05
PROVIDERS: ATTEND Anesthesiology
DX: M51.16 Intervertebral disc disorders with radiculopathy, lumbar region (principal); M48.061 Spinal stenosis, lumbar region without neurogenic claudication
CPT/HCPCS: 64483; J1040; J3490; Q9965

== ENCOUNTER → 2020-11-10 | Outpatient (CLI) | payer BC, MEDICARE ==
[2018-03-14 11:30] VITALS: BP 116/77
[~2020-11-10] MED LIST changes: +ASCO100019 PO; -ASCO10002 PO; -BUPIVACAINE MPF 0.25% 10 ML VIAL. ONE; -CALC600T4 PO; +CALC600T6 PO; -IOHEXOL 180 MG/ML 10 ML VIAL. ONE; +LISI1TAB37 PO; -methylPREDNISolone ACETATE 80 MG/ML VIAL. ONE
--- NOTE | 2020-11-10 09:19 | PDOC ---
Progress Note - Pain Clinic Date of Service: DOS: DATE: 11/10/20 TIME: 09:14 Diagnosis: Dx: Lumbar radiculopathy with lumbar degenerative disease and lumbar spinal stenosis Cervical radiculopathy with cervical degenerative disc disease History or Present Illness: HPI: 75-year-old male returns for follow-up status post left L4-5 transforaminal injection x2. Patient reports 75% improvement in the left lower extremity but his main complaint now is right low back hip and groin pain. On the right side only. Patient reports worse with standing walking changing positions better with laying down or sitting generally does not awaken from sleep at night but is noticeable in the right groin if he is standing still most especially. Patient reports is an 8 on scale 10 is worse over the past week 8 on average 0 its least visit 8 today. Patient has been working out at his gym at least 3 times a week and reports the pain is slightly better with working out but afterwards is much more painful with radiating pain into the right groin and anterior thigh on the right side. Patient continues exercises at home as well and walking daily but the pain is beginning to limit this. Patient reports no new motor or sensory deficits left leg is doing much better after his last transforaminal injection. Patient reports no new bowel continence no new motor deficits. Patient describes the pain as aching and sharp in the right side and more in the groin. Physical Exam: VS: Blood pressure is 152/82 pulse 81 respirations 18 temperature 98.2 F height 5 feet 9 inches weight 186 pounds. PE: PHYSICAL EXAMINATION: GENERAL: The patient is awake, alert, oriented, appropriate, very pleasant demeanor HEENT: Shows normocephalic, atraumatic. Extraocular movements are intact and symmetrical. Oral cavity: Mucous membranes moist and pink. NECK: Shows anterior throat supple without palpable lymphadenopathy noted. Swallow reflex symmetrical. CHEST: Shows normal on inspection. Breath sounds are clear bilaterally, no rales or rhonchi. HEART: Shows S1, S2 clear. No murmurs auscultated. ABDOMEN: Soft, nontender, nondistended, obese. No palpable organomegaly is noted. No rebound or guarding demonstrated. BACK: Shows spine grossly in the midline. Normal-appearing cervical lordotic curvature. There is increased thoracic kyphosis, some flattening of the lumbar lordotic curvature. Lumbar paraspinous muscles show symmetrical on inspection, on palpation shows some moderate tenderness diffusely throughout the upper, middle and lower distribution of the paraspinous muscles without specific trigger points, or radiation of pain. The patient has good rotational motion of the lumbar spine, both laterally as well as extension and flexion without significant difficulty. No tenderness over the spinous processes, sacrum or sacroiliac regions. EXTREMITIES: Lower extremities show deep tendon reflexes 2+ in the patellar and tendo calcaneus tendons. Motor exam is 5 on a scale of 5 with right dorsiflexion, extension, quadriceps and hamstring flexion and 5/5 on the left. Peripheral pulses are 1+ posterior tibial. No peripheral edema is noted bilaterally. Lower extremities are warm and dry to touch, equal in color and appearance. SKIN: Shows warm and dry, good turgor. No edema. No sores, rashes or bruising throughout. Procedure: Procedure: Options were discussed with the patient. Patient will chart reviews his current medication regimen updated current review of systems updated today as well. We will preauthorize patient for a lumbar epidural steroid injection as he has significant rightward disc protrusion at the L1 -2 level on MRI scan from July 2019, now with radicular pain in this distribution on the right. Patient continue with stretching and strength exercises working out at the gym daily and maintain activity as tolerated. Medication Injected: Med Injected: None Condition at Discharge: Condition at Discharge: Condition at discharge is stable. AIMEE MORALES MD Nov 10, 2020 09:19
== END | disposition home or self-care (01) ==
LOC: PNCL 08:27
PROVIDERS: ATTEND Anesthesiology
DX: M51.16 Intervertebral disc disorders with radiculopathy, lumbar region (principal); M48.061 Spinal stenosis, lumbar region without neurogenic claudication; M50.10 Cervical disc disorder with radiculopathy, unspecified cervical region; I10 Essential (primary) hypertension; E78.00 Pure hypercholesterolemia, unspecified; K21.9 Gastro-esophageal reflux disease without esophagitis; Z87.891 Personal history of nicotine dependence; Z79.82 Long term (current) use of aspirin; Z79.899 Other long term (current) drug therapy; Z98.890 Other specified postprocedural states
CPT/HCPCS: G0463

== ENCOUNTER → 2020-11-20 | Outpatient (CLI) | payer MEDICARE ==
[2018-03-14 11:30] VITALS: BP 116/77
[~2020-11-20] MED LIST changes: +IOHEXOL 180 MG/ML 10 ML VIAL. ONE; +methylPREDNISolone ACETATE 40 MG/ML VIAL. ONE; +methylPREDNISolone ACETATE 80 MG/ML VIAL. ONE
--- NOTE | 2020-11-20 10:22 | PDOC ---
Progress Note - Pain Clinic Date of Service: DOS: DATE: 11/20/20 TIME: 10:18 Diagnosis: Dx: Lumbar radiculopathy with lumbar degenerative disease and lumbar spinal stenosis Cervical radiculopathy with cervical degenerative disc disease and thoracic herniated disc T2-3 History or Present Illness: HPI: 75-year-old male returns to follow-up status post transforaminal injections most recently August 2019 patient did very well with his about 70% improvement overall we had seen him back November 10, 2020 and was waiting for prea uthorization with his insurance provider he is obtained that now would like to proceed with lumbar epidural steroid injection. Patient reports still pain in the right groin and low back as well on the right side patient reports an 8 on scale 10 is worse over the past week 6 on average for its least and is a 6 today. Patient reports no new motor or sensory deficit scribes pain is aching and sharp shooting into the right groin and superior aspect of the thigh as well worse with walking standing better with sitting or laying down does not awaken him from sleep at night. Patient reports no new motor or sensory deficits no new bowel or bladder incontinence or other complaints. Physical Exam: VS: Pressure is 141/77 pulse 83 respirations 18 temperature is 98.1 F weight is 188 pounds PE: PHYSICAL EXAMINATION: GENERAL: The patient is awake, alert, oriented, appropriate, very pleasant demeanor HEENT: Shows normocephalic, atraumatic. Extraocular movements are intact and symmetrical. Oral cavity: Mucous membranes moist and pink. NECK: Shows anterior throat supple without palpable lymphadenopathy noted. Swallow reflex symmetrical. CHEST: Shows normal on inspection. Breath sounds are clear bilaterally. HEART: Shows S1, S2 clear. No murmurs auscultated. ABDOMEN: Soft, nontender, nondistended, obese. No palpable organomegaly is noted. BACK: Shows spine grossly in the midline. Normal-appearing cervical lordotic curvature. There is slightly increased thoracic kyphosis, some minor flattening of the lumbar lordotic curvature. Lumbar paraspinous muscles show symmetrical on inspection, on palpation shows some moderate tenderness diffusely throughout the upper, middle and lower distribution of the paraspinous muscles, but without specific trigger points, without radiation of pain. The patient has good rotational motion of the lumbar spine, both laterally as well as extension and flexion without significant difficulty. No tenderness over the spinous processes, sacrum or sacroiliac regions. EXTREMITIES: Lower extremities show deep tendon reflexes 2+ in the patellar and tendo calcaneus tendons. Motor exam is 5 on a scale of 5 with right dorsiflexion, extension, quadriceps and hamstring flexion and 5/5 on the left. Peripheral pulses are 1+ posterior tibial. No peripheral edema is noted bilaterally. Lower extremities are warm and dry to touch, equal in color and appearance. SKIN: Shows warm and dry, good turgor. No edema. No sores, rashes or bruising throughout. Procedure: Procedure: Options were discussed with the patient. Patient chart reviews his current medication regimen updated current review of systems updated today as well. We will proceed with a lumbar epidural steroid injection today with fluoroscopic guidance. Risks were discussed including but not limited to: Bleeding, infection, possibility of epidural hematoma and subsequent neurological compromise, dural puncture, headaches, spinal cord and/or nerve damage, side effects of steroid medication, and poor results regarding pain control. Patient understands and wished to proceed. Patient return to clinic in approximate 2 weeks for follow-up, was counseled as return appointment to level, and side effects to be aware of. Medication Injected: Med Injected: Procedure is lumbar epidural steroid injection under local anesthetic using sterile prep and drape at the L1 to level using C-arm fluoroscopic guidance in both AP and lateral views medications injected is 120 mg Depo-Medrol + 10 mL preservative-free normal saline and 2 mL contrast- condition at discharge is stable patient tolerated procedure well had no complications. Condition at Discharge: Condition at Discharge: Condition at discharge stable, patient tolerated the procedure well and had no complications. AIMEE MORALES MD Nov 20, 2020 10:21
--- NOTE | 2020-11-20 10:22 | PDOC4 ---
PROCEDURE Procedure Patient was consented for lumbar epidural steroid injection. Risks were dis cussed including but not limited to: Bleeding, infection, possibility of epidural hematoma and subsequent neurological compromise, dural puncture, headaches, spinal cord and/or nerve damage, side effects of steroid medication, and poor results regarding pain control. Patient understands and wished to proceed. Procedure is lumbar epidural steroid injection under local anesthetic using sterile prep and drape at the L1 to level using C-arm fluoroscopic guidance in both AP and lateral views medications injected is 120 mg Depo-Medrol + 10 mL preservative-free normal saline and 2 mL contrast- condition at discharge is stable patient tolerated procedure well had no complications. AIMEE MORALES MD Nov 20, 2020 10:22
== END | disposition home or self-care (01) ==
LOC: PNCL 09:09
PROVIDERS: ATTEND Anesthesiology
DX: M51.16 Intervertebral disc disorders with radiculopathy, lumbar region (principal); M48.061 Spinal stenosis, lumbar region without neurogenic claudication; M50.10 Cervical disc disorder with radiculopathy, unspecified cervical region; M51.24 Other intervertebral disc displacement, thoracic region; E78.00 Pure hypercholesterolemia, unspecified; I10 Essential (primary) hypertension; K21.9 Gastro-esophageal reflux disease without esophagitis; Z87.891 Personal history of nicotine dependence; Z79.82 Long term (current) use of aspirin; Z79.899 Other long term (current) drug therapy; Z98.890 Other specified postprocedural states
CPT/HCPCS: 62323; J1030; J1040; Q9965